=== PATIENT | female | born 1940 | race Caucasian/White ===

== ENCOUNTER 2017-03-18 22:07 | Emergency (ER) | payer MEDICAID, MEDICARE ==
[~2017-03-18] VITALS: Ht 162.6 cm; Wt 103.5 kg
[~2017-03-18 22:07] MED LIST: ESTRIDOL; LEVO75TA59 PO; METO-448 PO; OMEP20CA16 PO; SIMV20TA2 PO
[2017-03-18 22:18] VITALS: Ht 162.6 cm; Wt 103.5 kg
== END 2017-03-18 23:42 | disposition left against medical advice (07) ==
LOC: E/R 22:07
DX: Z53.21 Procedure and treatment not carried out due to patient leaving prior to being seen by health care provider (principal)